=== PATIENT | male | born 1960 | race Caucasian/White ===

== ENCOUNTER → 2016-12-23 | Outpatient (CLI) | payer SELFPAY ==
[~2016-12-23] MED LIST: ADVIL LIQUI-GE200 MG PO; BENICAR 20MG TA20 MG PO; DEPO-TESTOS200 MG/M1 IM; DESYREL 100MG100 MG PO; FERROUS SULFAT325 M4 PO; LEADER MELATONIN5 MG PO; LOVASTATIN10 M1 PO; PRILOSEC 20MG20 MG PO; TYLENOL EXTRA500 M2 PO
== END ==
LOC: RAD 16:38
DX: S82.845 Nondisplaced bimalleolar fracture of left lower leg (principal); R60.0 Localized edema; M19.072 Primary osteoarthritis, left ankle and foot

== ENCOUNTER → 2018-08-01 | Outpatient (CLI) | payer SELFPAY ==
[2016-05-04 16:43] VITALS: BP 170/120
[2018-08-01 14:34] LABS: ALBUMIN 4.1 g/dL (3.5-5.0); CALCIUM 9.4 mg/dL (8.4-10.2); POTASSIUM 4.6 mmol/L (3.6-5.0); TOTAL BILIRUBIN 0.6 mg/dL (0.2-1.3); TOTAL PROTEIN 6.9 g/dL (6.3-8.2)
== END ==
LOC: LAB 13:30
PROVIDERS: Family Medicine
DX: Z12.5 Encounter for screening for malignant neoplasm of prostate (principal); E29.1 Testicular hypofunction; I10 Essential (primary) hypertension; E78.5 Hyperlipidemia, unspecified

== ENCOUNTER → 2018-12-22 | Outpatient (CLI) | payer SELFPAY ==
[2016-05-04 16:43] VITALS: BP 170/120
== END ==
LOC: RAD 13:56
DX: N43.3 Hydrocele, unspecified (principal); N50.82 Scrotal pain; K40.90 Unilateral inguinal hernia, without obstruction or gangrene, not specified as recurrent

== ENCOUNTER → 2019-10-09 | Outpatient (CLI) | payer SELFPAY ==
[2016-05-04 16:43] VITALS: BP 170/120
[2019-10-09 15:20] LABS: ALBUMIN 3.9 g/dL (3.5-5.0); POTASSIUM 4.4 mmol/L (3.5-5.1)
[2019-10-09 15:21] LABS: CALCIUM 9.2 mg/dL (8.3-10.5)
[2019-10-09 15:23] LABS: TOTAL PROTEIN 6.9 g/dL (6.4-8.3)
[2019-10-09 15:24] LABS: TOTAL BILIRUBIN 0.7 mg/dL (0.2-1.2)
== END ==
LOC: LAB 14:51
PROVIDERS: Family Medicine
DX: I10 Essential (primary) hypertension (principal); E78.5 Hyperlipidemia, unspecified; E66.01 Morbid (severe) obesity due to excess calories

== ENCOUNTER 2020-10-28 11:34 | Emergency (ER) | payer BC ==
[~2020-10-28] VITALS: Wt 161.5 kg
[2020-10-28] MEDS ORDERED: AMLODIPINE BESYL5 MG PO (12:02)
[2020-10-28] MEDS ORDERED: HYZAAR 50-12.51 EACH PO (12:03)
[2020-10-28 12:10] LABS: EOS # 0.1 (0.04-0.40); EOS % 1.8 % (0.0-4.0); HEMATOCRIT 33.8 % (42.0-52.0); HEMOGLOBIN 8.8 g/dL (13.5-18.0); LYMPH# 1.3 (1.50-4.00); MEAN CELL VOLUME 72 fl (78-100); MEAN PLATELET VOLUME 8.6 fl (7.4-10.4); MONO # 0.7 (0.20-0.80); NEU # 4.6 (1.40-6.50); PLATELET COUNT 386 K/mm3 (130-400); RED BLOOD COUNT 4.71 M/mm3 (4.20-5.60); RED CELL DISTRIBUTION WIDTH 18.5 % (11.5-14.5); WHITE BLOOD COUNT 6.8 K/mm3 (4.8-10.8)
[2020-10-28 12:11] LABS: MEAN CORPUSCULAR HEMOGLOBIN 19 pg (27-31); MEAN CORPUSCULAR HGB CONC 26 g/dL (33-37)
[2020-10-28 12:18] LABS: POTASSIUM 4.2 mmol/L (3.5-5.1); SODIUM 139 mmol/L (136-145)
[2020-10-28 12:19] LABS: CALCIUM 8.7 mg/dL (8.3-10.5)
[2020-10-28 12:20] LABS: GLUCOSE 105 mg/dL (75-110); TOTAL PROTEIN 6.8 g/dL (6.2-8.1)
[2020-10-28 12:21] LABS: CARBON DIOXIDE 29 mmol/L (23-31)
[2020-10-28 12:22] LABS: TOTAL BILIRUBIN 0.4 mg/dL (0.2-1.2)
[2020-10-28 12:25] LABS: AST-SGOT 15 U/L (5-34)
[2020-10-28 12:27] LABS: ALT/SGPT 20 U/L (0-55)
[2020-10-28 12:28] LABS: D-DIMER 0.68 mg/L FEU (0.15-0.50)
[2020-10-28 12:33] LABS: TROPONIN-I < 0.03 ng/mL (<0.030)
[2020-10-28 13:25] LABS: ERYTHROCYTE SEDIMENTATION RATE 19 mm/hr (0-20)
[2020-10-28 14:37] LABS: URINE APPEARANCE CLEAR; URINE BILIRUBIN NEGATIVE (NEGATIVE); URINE BLOOD NEGATIVE (NEGATIVE); URINE COLOR YELLOW; URINE GLUCOSE NEGATIVE (NEGATIVE); URINE KETONE NEGATIVE (NEGATIVE); URINE LEUKOCYTE ESTERASE NEGATIVE (NEGATIVE); URINE NITRATE NEGATIVE (NEGATIVE); URINE PROTEIN(semi-quant) TRACE mg/dL (NEGATIVE); URINE UROBILINOGEN NORMAL (NORMAL)
[2020-10-28 14:38] LABS: URINE MUCUS PRESENT (NOT PRESENT); URINE WBC 0-1 /hpf (0-3)
[2020-10-28 17:44] VITALS: BP 149/109
== END 2020-10-28 17:24 | disposition short-term general hospital (02) ==
LOC: ED 11:34
PROVIDERS: Physician Assistant
DX: I20.0 Unstable angina (principal); I10 Essential (primary) hypertension; E78.5 Hyperlipidemia, unspecified; Z20.822 Contact with and (suspected) exposure to COVID-19; Z82.3 Family history of stroke
CPT/HCPCS: J1650; Q9967

== ENCOUNTER → 2020-11-04 | Outpatient (CLI) | payer BC ==
[2020-10-28 17:44] VITALS: BP 149/109
[~2020-11-04] MED LIST changes: +AMLODIPINE BESYL5 MG PO; +HYZAAR 50-12.51 EACH PO
== END ==
LOC: RAD 16:37
DX: M19.072 Primary osteoarthritis, left ankle and foot (principal)

== ENCOUNTER → 2021-01-28 | Outpatient (CLI) | payer BC ==
[2021-01-28 16:14] LABS: EOS # 0.1 (0.04-0.40); HEMATOCRIT 45.8 % (42.0-52.0); HEMOGLOBIN 14.7 g/dL (13.5-18.0); LYMPH# 1.6 (1.50-4.00); MEAN CELL VOLUME 87 fl (78-100); MEAN CORPUSCULAR HEMOGLOBIN 28 pg (27-31); MEAN CORPUSCULAR HGB CONC 32 g/dL (33-37); MEAN PLATELET VOLUME 9.8 fl (7.4-10.4); MONO # 0.8 (0.20-0.80); NEU # 4.6 (1.40-6.50); PLATELET COUNT 239 K/mm3 (130-400); RED BLOOD COUNT 5.26 M/mm3 (4.20-5.60); RED CELL DISTRIBUTION WIDTH 20.5 % (11.5-14.5); WHITE BLOOD COUNT 7.1 K/mm3 (4.8-10.8)
== END ==
LOC: LAB 15:49
PROVIDERS: Family Medicine
DX: D50.0 Iron deficiency anemia secondary to blood loss (chronic) (principal); E78.5 Hyperlipidemia, unspecified; R53.83 Other fatigue

== ENCOUNTER → 2022-03-09 | Outpatient (CLI) | payer BC ==
[2022-03-09 14:00] LABS: POTASSIUM 3.9 mmol/L (3.5-5.1)
[2022-03-09 14:01] LABS: ALBUMIN 4.2 g/dL (3.4-4.8)
[2022-03-09 14:02] LABS: CALCIUM 9.8 mg/dL (8.3-10.5)
[2022-03-09 14:03] LABS: TOTAL PROTEIN 7.5 g/dL (6.2-8.1)
[2022-03-09 14:05] LABS: TOTAL BILIRUBIN 0.7 mg/dL (0.2-1.2)
== END ==
LOC: LAB 13:38
PROVIDERS: Family Medicine
DX: S93.402A Sprain of unspecified ligament of left ankle, initial encounter (principal); M25.569 Pain in unspecified knee; E78.5 Hyperlipidemia, unspecified; I10 Essential (primary) hypertension

== ENCOUNTER → 2022-06-22 | Outpatient (CLI) | payer OTHER ==
[2022-06-22 10:25] LABS: ALBUMIN 3.7 g/dL (3.4-4.8)
[2022-06-22 10:28] LABS: TOTAL PROTEIN 6.8 g/dL (6.2-8.1)
[2022-06-22 10:30] LABS: TOTAL BILIRUBIN 0.5 mg/dL (0.2-1.2)
[2022-06-22 10:33] LABS: DIRECT BILIRUBIN 0.4 mg/dL (0.0-0.5)
== END ==
LOC: LAB 07:16
PROVIDERS: Family Medicine
DX: E78.5 Hyperlipidemia, unspecified (principal); M19.072 Primary osteoarthritis, left ankle and foot

== ENCOUNTER → 2023-12-15 | Outpatient (CLI) | payer OTHER ==
[2023-12-15 13:37] LABS: CALCIUM 9.2 mg/dL (8.3-10.5)
== END ==
LOC: LAB 13:16
PROVIDERS: Family Medicine
DX: I10 Essential (primary) hypertension (principal)